=== PATIENT | female | born 1955 | race Caucasian/White ===

== ENCOUNTER 2022-04-08 12:50 | Outpatient (CLI) | payer OTHER, SELFPAY ==
--- NOTE | 2022-04-08 13:00 | CRLHL7_ITS ---
For Patients: As a result of the Century Cures Act, medical imaging exams and procedure reports are released immediately into your electronic medical record. You may view this report before your referring provider. If you have questions, please contact your health care provider. DXA BONE MINERAL DENSITY STUDY Current height (in): 65.0. Weight (lb): 180.0. Menopause age: 61. Ethnicity: White. 1. Have you had a previous hip or vertebral fracture? No. 2. Have you had any fractures during your adult life which did not result from significant trauma (e.g., auto accident)? No. 3. Did either of your parents have a hip fracture? No. 4. Do you smoke? No. 5. Have you ever taken Glucocorticoids? No. 6. Do you have rheumatoid arthritis? No. 7. Do you have secondary osteoporosis? No. 8. Do you drink 3 or more alcoholic drinks per day? No. 9. Are you being treated for osteoporosis? No. 10. Have you ever taken any of the following medications: Actonel, Evista, Fosamax, Miacalcin, Reclast, Boniva, Forteo, HRT (i.e. estrogen/hormone therapy), Protelos, Prolia, Vitamin D, Calcium, other ??? please specify. ANSWER: Yes, calcium, vitamin D. 11. Do you have any of the following medical conditions: Anorexia or bulimia, asthma or emphysema, end stage renal disease, hyperparathyroidism, any seizure disorders, cancer, inflammatory bowel diseases, hysterectomy, other ??? please specify. ANSWER: Yes, cancer. 12. What was your maximum height (inches)? 65. 13. Do you perform weight bearing exercise regularly? Yes. 14. Do you regularly consume dairy products? Yes. 15. Do you drink caffeinated beverages? Yes. 16. At what age did your period start? 17. 17. Are you premenopausal? No. 18. How many full term pregnancies have you had? 3. 19. Have you ever missed your period for more than 6 months in a row (not including or menopause)? No. TECHNIQUE: Bone mineral density study was performed using the [employer]. FINDINGS: The results of the study expressed as bone mineral density (BMD) are as follows: Lumbar spine L1 to L4: BMD: 0.977 g/cm2. T-score: -0.6. Z-score: 1.1. Neck Left: BMD: 0.728 g/cm2. T-score: -1.1. Z-score: 0.4. Right: BMD: 0.718 g/cm2. T-score: -1.2. Z-score: 0.3. Total Left: BMD: 0.835 g/cm2. T-score: -0.9. Z-score: 0.3. Right: BMD: 0.844 g/cm2. T-score: -0.8. Z-score: 0.4. IMPRESSION: Osteopenia. *Comparison exams done prior to 02/2020 were performed on different unit, [employer]. COMPARISON: Compared with scan of 2019, the bone mineral density has decreased by 1.9 percent at the spine and increased by 1.0 percent at the hips. FRAX 10-year Fracture Risk Major Osteoporotic Fracture: 8.0 percent Hip Fracture: 0.7 percent Reported Risk Factors: [place] () Neck BMD=0.718, BMI=30.0 Nick Esposito M.D. Diagnostic Radiologist [email or web address] JARAD/renetta / be/Dictated by: Nick Esposito MD @ 04/08/2022 3:49:00 PM (Electronically Signed)
== END 2022-04-08 12:51 | disposition home or self-care (01) ==
PROVIDERS: Visit Provider Nurse Practitioner Family
DX: C50.919 Malignant neoplasm of unspecified site of unspecified female breast (principal); Z79.811 Long term (current) use of aromatase inhibitors
CPT/HCPCS: 77080

== ENCOUNTER 2022-05-28 08:58 | Outpatient (CLI) | payer OTHER, SELFPAY ==
[2022-05-28 13:46] LABS: Albumin* 4.4 g/dL (3.3-5.0); Chloride* 104 mmol/L (96-114)
[2022-05-28 13:47] LABS: Potassium* 4.4 mmol/L (3.6-5.1); Sodium* 139 mmol/L (135-149)
[2022-05-28 13:49] LABS: Alkaline Phosphatase* 118 U/L (40-150); Aspartate Amino Transferase* 34 U/L (12-35); Bilirubin Total* 0.4 mg/dL (0.1-1.5); Blood Urea Nitrogen* 16 mg/dL (7-30); Carbon Dioxide* 25 mmol/L (20-32); Cholesterol* 160 mg/dL (90-199); Glucose* 106 mg/dL (60-115); Triglycerides* 192 mg/dL (40-149)
[2022-05-28 13:50] LABS: Alanine Aminotransferase* 22 U/L (4-35); Calcium* 10.3 mg/dL (8.4-10.6); HDL Cholesterol* 64 mg/dL (>=50); LDL Cholesterol Calculated 58 mg/dL (<100)
[2022-05-28 14:00] LABS: Microalbumin Urine 10 mg/dL
[2022-05-28 14:09] LABS: Estimated Glomerular Filt Rate 63 ml/min
[2022-05-28 14:13] LABS: Creatinine Urine 184.9 mg/dL; Microalbumin Creatinine Ratio 50 mg/g (0-30)
== END 2022-05-28 08:59 | disposition home or self-care (01) ==
PROVIDERS: PCP Family Medicine; Visit Provider Family Medicine
DX: Z00.00 Encounter for general adult medical examination without abnormal findings (principal); E03.9 Hypothyroidism, unspecified; I10 Essential (primary) hypertension; D50.9 Iron deficiency anemia, unspecified; E11.9 Type 2 diabetes mellitus without complications
CPT/HCPCS: 80053; 80061; 82043; 82570; 84443

== ENCOUNTER 2022-06-04 10:44 | Outpatient (RCR) | payer OTHER, SELFPAY ==
--- NOTE | 2022-06-05 13:14 | URNOTE ---
Request received for authorazation for Althea ([id number]). Prior authorization is not required per [facility] record#[id number].
--- NOTE | 2022-06-11 12:59 | ONC.NURNOTE ---
Addendum entered by Chana Beltrán RN 07/24/22 11:03: Pt called back saying she is working on getting her blood pressure under control, and then will get dental clearance and call us to schedule. Addendum entered by Erica Cheng RN 07/24/22 09:29: LMOM to call our office for scheduling - will need to get copy of dental clearance first. Original Note: Patient was called to let her know that insurance will cover her zometa, but that she will need dental clearance. Asked that patient call office and give dental office information so that this can be completed.
== END 2022-12-01 23:59 | disposition home or self-care (01) ==
LOC: CCIC 10:44
PROVIDERS: PCP Family Medicine; Referring Provider Family Medicine; Visit Provider Nurse Practitioner Family
DX: C50.919 Malignant neoplasm of unspecified site of unspecified female breast (principal); Z17.0 Estrogen receptor positive status [ER+]; Z79.811 Long term (current) use of aromatase inhibitors; M85.80 Other specified disorders of bone density and structure, unspecified site; I89.0 Lymphedema, not elsewhere classified
CPT/HCPCS: 99212; 99214

== ENCOUNTER 2022-08-17 08:54 | Outpatient (CLI) | payer OTHER, SELFPAY ==
--- NOTE | 2022-08-17 09:15 | CRLHL7_ITS ---
For Patients: As a result of the Cures Act, medical imaging exams and procedure reports are released immediately into your electronic medical record. You may view this report before your referring provider. If you have questions, please contact your health care provider. BILATERAL SCREENING MAMMOGRAM WITH COMPUTER-AIDED DETECTION AND TOMOSYNTHESIS TECHNIQUE: CC and MLO views were obtained. These mammographic images have been obtained using full-field digital technique. These mammographic images were interpreted with the benefit of computer-aided detection. Breast tomosynthesis was used in this interpretation. COMPARISON FILM: 06/27/21, 05/21/20, 04/27/19 diagnostic. FINDINGS: There are scattered areas of fibroglandular density. IMPRESSION: There is no radiographic evidence for malignancy. ASSESSMENT: BI-RADS Category 2: Benign RECOMMENDATION: Routine screening mammogram in 1 year. A lay language report of this examination will be provided to the patient. NICK ACUNA M.D. Diagnostic Radiologist [email or web address] JARAD/michael Transcribed: 08/17/2022, 1:[address]/Dictated by: Nick Acuna MD @ 08/17/2022 10:34:00 AM (Electronically Signed)
== END 2022-08-17 08:55 | disposition home or self-care (01) ==
PROVIDERS: PCP Family Medicine; Visit Provider Family Medicine
DX: Z12.31 Encounter for screening mammogram for malignant neoplasm of breast (principal)
CPT/HCPCS: 77063; 77067

== ENCOUNTER 2022-12-03 10:18 | Outpatient (RCR) | payer OTHER, SELFPAY ==
[2022-12-03 11:01] LABS: Chloride* 108 mmol/L (96-114)
[2022-12-03 11:02] LABS: Albumin* 4.5 g/dL (3.3-5.0); Potassium* 4.1 mmol/L (3.6-5.1); Sodium* 141 mmol/L (135-149)
[2022-12-03 11:04] LABS: Creatinine* 0.9 mg/dL (0.5-1.5); Estimated Glomerular Filt Rate 71 ml/min
[2022-12-03 11:05] LABS: Alanine Aminotransferase* 29 U/L (4-35); Alkaline Phosphatase* 97 U/L (40-150); Aspartate Amino Transferase* 28 U/L (12-35); Bilirubin Total* 0.4 mg/dL (0.1-1.5); Blood Urea Nitrogen* 12 mg/dL (7-30); Carbon Dioxide* 26 mmol/L (20-32); Glucose* 110 mg/dL (60-115); Total Protein* 7.6 g/dL (6.0-8.3)
[2022-12-03 11:06] LABS: Calcium* 9.5 mg/dL (8.4-10.6)
[2022-12-03] MEDS: ZOLEDRONIC ACID 4 MG in 0.9 % SODIUM CHLORIDE 100 ml 100 ML 420 MG IVPB (12:27)
== END 2023-06-01 23:59 | disposition home or self-care (01) ==
LOC: CCIC 10:18
PROVIDERS: PCP Family Medicine; Referring Provider Family Medicine; Visit Provider Nurse Practitioner Family
DX: C50.919 Malignant neoplasm of unspecified site of unspecified female breast (principal); Z17.0 Estrogen receptor positive status [ER+]; Z79.811 Long term (current) use of aromatase inhibitors; M85.80 Other specified disorders of bone density and structure, unspecified site; I89.0 Lymphedema, not elsewhere classified
CPT/HCPCS: 36415; 80053; 80061; 84443; 96374; 99212; 99214; J3489

== ENCOUNTER 2022-12-28 11:19 | Outpatient (CLI) | payer OTHER, SELFPAY | END 2022-12-28 11:20 | disposition home or self-care (01) | LOC: FRMREF 11:19 | PROVIDERS: PCP Family Medicine; Visit Provider Family Medicine | DX: L02.412 Cutaneous abscess of left axilla (principal) | CPT/HCPCS: 87070; 87205 ==

== ENCOUNTER 2023-01-05 09:57 | Day surgery (SDC) | payer OTHER, SELFPAY ==
[2023-01-05] VITALS (10 sets, daily range): BP systolic 112–143; BP diastolic 58–78; PULSE 63–72; RESP 16–20; TEMP 36.3–36.8; O2SAT 96–100; BMI 32.3
[2023-01-05] MEDS: LACTATED RINGERS 1000 ML 1,000 ML 100 ML IV (10:30)
--- NOTE | 2023-01-05 11:41 | W.ANESCHARGE ---
Anesthesia Charges Start Date/Time Anesthesia Start Date: 01/05/23 Anesthesia Start Time: 11:57 Stop Date/Time Anesthesia Stop Date: 01/05/23 Anesthesia Stop Time: 13:55
[2023-01-05] MEDS: CEFAZOLIN 2 GM INJ IVP (12:07)
--- NOTE | 2023-01-05 12:33 | SUR.OPER ---
PATIENT QUESTIONS ANSWERED SATISFACTORILY PREOPERATIVELY. PATIENT BROUGHT TO OR #2 PER CART. Patient positioned supine on OR #2 bed. ? Perioperative team supported arms bilaterally on arm boards. Final approval of positioning by surgeon.
[2023-01-05] MEDS: BUPIVACAINE 0.5% 30 ML 10 ML INJECTION (12:55)
--- NOTE | 2023-01-05 13:51 | PM.GSPRC ---
Operative Note Date of procedure: 01/05/23 Pre-op diagnosis: 1. Painful draining calcified mass in the left axilla at the site of previous lumpectomy. Post-op diagnosis: Same Type of Procedure: 1. Excision of left axillary mass with complex incisional closure. Indications: 67-year-old female with previous history of left breast lumpectomy and axillary node dissection in 2014 s/p postoperative radiation, chemotherapy, and antiestrogen therapy was seen in clinic with a draining opening in the center of her left lumpectomy/left axillary incision. The drainage was noted about a week prior to her presentation. She also was noted to have redness and was treated with antibiotics. However antibiotics only made a small difference in her drainage. Patient's mammogram from several months ago was reviewed and a left breast dystrophic calcification was seen near the axilla. This was present since 2019. On clinical exam in the left axilla at the site of previous lumpectomy/axillary node dissection incision there was central erythema with firmness to palpation. In the center of this calcified tissue there was a 5 mm opening with purulent drainage coming out from the skin opening. Given patient's physical exam and her previous history of breast cancer, excisional biopsy of this left axillary mass for diagnostic purposes was recommended. The procedure was discussed in detail. The risks associated with the procedure including infection, bleeding, possible need for additional procedures were all discussed with the patient, and she agreed to proceed. Procedure Description: After discussing the risks and benefits of the procedure, the patient signed informed consent.? The operative site was marked and the patient was brought to the operating room and placed on the operating table in supine position.? Care was taken to pad the patient's pressure points.?? The patient was then intubated by anesthesia.?? The operative site was then prepped and draped in the usual sterile fashion.? A time-out was then performed. An elliptical slightly oblique skin incision was made with a scalpel around the calcified mass excising the draining skin opening. The dissection was carried down to the breast tissue and subcutaneous fat with cautery. The dissected tissues were friable and bleeding was controlled with cautery. The mass was firmly attached to the pectoralis muscle and scar tissue in the left axilla from patient's previous axillary dissection. The mass was shaved off of the underlying tissues to avoid injury to the underlying structures. I would call this a hostile axilla due to the difficulty of dissecting the tissues from underlying muscle and axillary scar. Once the mass was removed, it was inked for orientation and sent to pathology in formalin. Hemostasis was achieved with cautery. Local anesthetic was injected in the surgical field. The breast tissue was mobilized of the pectoralis fascia medially and a lateral skin flap was developed to achieve cosmetic closure. This was done with cautery. A 15 round Fran drain was placed through a separate stab incision just inferior to the excisional biopsy cavity. The drain was secured in place with a nylon suture. The incision was then closed in layers with interrupted 2-0 and 3-0 Vicryl sutures. The skin was closed with a running 4-0 Monocryl stitch. The length of the incision was 15.5 cm. Steri-Strips and sterile gauze was placed over the incision. The chest was then wrapped in an Sudeep wrap. ? ? The patient was then woken and transported to the recovery area in stable condition. ? The patient tolerated the procedure well. Findings: Firm calcified mass attached to pectoralis muscle and underlying axillary scar. Anesthesia: GETA Surgeon: Cheyanne Velasquez MD Estimated blood loss (mL): 10 Additional Specimen Information: 1. Left axillary mass Condition: stable Disposition: PACU
--- NOTE | 2023-01-05 13:58 | W.ANESCHARGE ---
Anesthesia Charges Start Date/Time Anesthesia Start Date: 01/05/23 Anesthesia Start Time: 11:57 Stop Date/Time Anesthesia Stop Date: 01/05/23 Anesthesia Stop Time: 13:55
--- NOTE | 2023-01-05 15:25 | SUR.PHASEII ---
POST-OP TEACHING DONE. DRESSING CHANGES DAILY AND MEASURING OUTPUT OF THE TIM DRAIN DAILY. PATIENT STATED UNDERSTANDING OF WOUND CARE. DENIES FURTHER QUESTIONS.
== END 2023-01-05 15:29 | disposition home or self-care (01) ==
PROVIDERS: PCP Family Medicine; Visit Provider Surgery
PROC: (CPT 11406; principal; 2023-01-05 12:15)
DX: L90.5 Scar conditions and fibrosis of skin (principal); N64.89 Other specified disorders of breast; Z85.3 Personal history of malignant neoplasm of breast
CPT/HCPCS: 11406; 13101; 13102 ×2; 01610; 88305; J0330; J0690; J1170; J2250; J2704; J2710; J3010; J3490; J7120

== ENCOUNTER 2023-05-31 08:06 | Outpatient (CLI) | payer OTHER, SELFPAY | END 2023-05-31 08:07 | disposition home or self-care (01) | LOC: NFLDREF 06-02 06:25 | PROVIDERS: PCP Family Medicine; Referring Provider Family Medicine; Visit Provider Family Medicine | DX: E03.9 Hypothyroidism, unspecified (principal); K76.0 Fatty (change of) liver, not elsewhere classified; I10 Essential (primary) hypertension; E78.2 Mixed hyperlipidemia; M85.80 Other specified disorders of bone density and structure, unspecified site | CPT/HCPCS: 80053; 80061; 82043; 82306; 82570; 84443 ==

== ENCOUNTER 2023-06-16 12:58 | Outpatient (RCR) | payer OTHER, SELFPAY ==
--- NOTE | 2023-06-11 15:58 | URNOTE ---
Request received for authorization for [employer] ([id number]). Prior authorization is not required [facility]#[id number].
[2023-06-16 13:44] LABS: Calcium* 9.4 mg/dL (8.4-10.6); Creatinine* 1.1 mg/dL (0.5-1.5); Estimated Glomerular Filt Rate 56 ml/min
[2023-06-16] MEDS: ZOLEDRONIC ACID 4 MG in 0.9 % SODIUM CHLORIDE 100 ml 100 ML 420 MG IVPB (15:26)
== END 2023-12-13 23:59 | disposition home or self-care (01) ==
LOC: CCIC 12:58
PROVIDERS: PCP Family Medicine; Referring Provider Family Medicine; Visit Provider Internal Medicine Hematology & Oncology
DX: C50.912 Malignant neoplasm of unspecified site of left female breast (principal); Z17.0 Estrogen receptor positive status [ER+]; M85.80 Other specified disorders of bone density and structure, unspecified site; I89.0 Lymphedema, not elsewhere classified
CPT/HCPCS: 36415; 82310; 82565; 96374; 99212; 99214; J3489

== ENCOUNTER 2023-12-20 07:58 | Outpatient (CLI) | payer OTHER, SELFPAY | END 2023-12-20 07:59 | disposition home or self-care (01) | PROVIDERS: PCP Family Medicine; Visit Provider Family Medicine | DX: R73.03 Prediabetes (principal); I10 Essential (primary) hypertension; E03.9 Hypothyroidism, unspecified; E78.5 Hyperlipidemia, unspecified; Z11.59 Encounter for screening for other viral diseases | CPT/HCPCS: 80053; 80061; 82043; 82570; 84439; 84443; 86803 ==

== ENCOUNTER 2024-01-20 15:02 | Outpatient (CLI) | payer OTHER, SELFPAY ==
--- NOTE | 2024-01-20 15:20 | MM_ITS ---
Patient: RONALDO SHUKLA Facility:?[facility] Patient ID:?[id number] Site Patient ID:?[id number] Site :?[id number] Study:?XRay-Breast Bilateral 3D W/CAD-01/20/2024 4:11:29 PM Ordering Physician:Jenelle Final Report: BILATERAL SCREENING MAMMOGRAM WITH COMPUTER-AIDED DETECTION AND TOMOSYNTHESIS TECHNIQUE: CC and MLO views were obtained. These mammographic images have been obtained using full-field digital technique. These mammographic images were interpreted with the benefit of computer-aided detection. Breast Tomosynthesis was used in this interpretation. COMPARISON FILM: 08/17/22, 06/27/21, 05/21/20. FINDINGS: The breasts are almost entirely fatty. IMPRESSION: There is no radiographic evidence for malignancy. ASSESSMENT: BI-RADS Category 2: Benign RECOMMENDATION: Routine screening mammogram in 1 year. A lay language report of this examination will be provided to the patient. Nick Esposito M.D. Diagnostic Radiologist [email or web address] DSM/sp R& Transcribed: 6:56 p.m. SP/Dictated by: Nick Esposito MD @ 01/24/2024 9:07:00 AM Signed by:?Nick Esposito MD @01/24/2024 8:47:35 PM (Electronic Signature)
== END 2024-01-20 15:03 | disposition home or self-care (01) ==
LOC: MAMMO 15:04
PROVIDERS: PCP Family Medicine; Visit Provider Family Medicine
DX: Z12.31 Encounter for screening mammogram for malignant neoplasm of breast (principal)
CPT/HCPCS: 77063; 77067

== ENCOUNTER 2024-02-07 09:10 | Outpatient (RCR) | payer OTHER, SELFPAY ==
[2023-12-27] MEDS: 0.9 % SODIUM CHLORIDE 250 ml IV (14:30)
[2023-12-27] MEDS: SODIUM CHLORIDE 0.9 % (FLUSH) 10 ML SYRINGE IVF (14:30)
[2023-12-27] MEDS: ZOLEDRONIC ACID 4 MG in 0.9 % SODIUM CHLORIDE 100 ml 100 ML 420 MG IVPB (14:35)
--- NOTE | 2024-01-03 12:52 | ONC.NURNOTE ---
Spoke to pt regarding transition her osteopenia management and bone density test to primary care, pt requesting nursing contact pt's primary care provider- Socorro Westfall at [facility]. [employer] called and left message with [facility] as pt has an appt tomorrow with them. Lidia aware rash has resolved and would like pt to follow up with oncology in 2 months. Pt verbalized understanding of plan of care.
== END 2024-06-24 23:59 | disposition home or self-care (01) ==
LOC: CCIC 09:10
PROVIDERS: PCP Family Medicine; Visit Provider Physician Assistant
DX: C50.912 Malignant neoplasm of unspecified site of left female breast (principal); Z17.0 Estrogen receptor positive status [ER+]; M85.80 Other specified disorders of bone density and structure, unspecified site; I89.0 Lymphedema, not elsewhere classified; L53.9 Erythematous condition, unspecified; L29.9 Pruritus, unspecified
CPT/HCPCS: 96374; 99214; 99215; G0463; J3489; J7050

== ENCOUNTER 2024-06-29 08:50 | Outpatient (CLI) | payer OTHER, SELFPAY | END 2024-06-29 08:51 | disposition home or self-care (01) | LOC: NFLDREF 06-30 11:02 | PROVIDERS: PCP Family Medicine; Referring Provider Family Medicine; Visit Provider Family Medicine | DX: R73.03 Prediabetes (principal); E03.9 Hypothyroidism, unspecified; I10 Essential (primary) hypertension; F31.70 Bipolar disorder, currently in remission, most recent episode unspecified; B00.1 Herpesviral vesicular dermatitis; I89.0 Lymphedema, not elsewhere classified; R21 Rash and other nonspecific skin eruption | CPT/HCPCS: 84439; 84443 ==

== ENCOUNTER 2024-07-31 07:25 | Outpatient (CLI) | payer OTHER, SELFPAY | END 2024-07-31 07:26 | disposition home or self-care (01) | LOC: NFLDREF 08-01 11:50 | PROVIDERS: PCP Family Medicine; Referring Provider Family Medicine; Visit Provider Family Medicine | DX: E03.9 Hypothyroidism, unspecified (principal) | CPT/HCPCS: 84439; 84443 ==

== ENCOUNTER 2024-12-22 09:09 | Outpatient (CLI) | payer OTHER, SELFPAY | END 2024-12-22 09:10 | disposition home or self-care (01) | PROVIDERS: PCP Family Medicine; Visit Provider Family Medicine | DX: I10 Essential (primary) hypertension (principal); E78.5 Hyperlipidemia, unspecified; E03.9 Hypothyroidism, unspecified; R73.03 Prediabetes; K76.0 Fatty (change of) liver, not elsewhere classified; E88.810 Metabolic syndrome | CPT/HCPCS: 80053; 80061; 82043; 82570; 84439; 84443 ==

== ENCOUNTER 2025-01-24 13:39 | Outpatient (CLI) | payer OTHER, SELFPAY ==
[2025-01-24] MEDS: PERFLUTREN LIPID MICROSPHERES 2 ML VIAL IVP (14:26)
--- NOTE | 2025-01-24 15:00 | CRLHL7_ITS ---
For Patients: As a result of the Century Cures Act, medical imaging exams and procedure reports are released immediately into your electronic medical record. You may view this report before your referring provider. If you have questions, please contact your health care provider. DXA BONE MINERAL DENSITY STUDY Reason for exam: Specified disorders of bone density. Current height (in): 64. Weight (lb): 200. Menopause age: 61. Ethnicity: White. 1. Have you had a previous hip or vertebral fracture? No. 2. Have you had any fractures during your adult life which did not result from significant trauma (e.g., auto accident)? No. 3. Did either of your parents have a hip fracture? No. 4. Do you smoke? No. 5. Have you ever taken Glucocorticoids? No. 6. Do you have rheumatoid arthritis? No. 7. Do you have secondary osteoporosis? No. 8. Do you drink 3 or more alcoholic drinks per day? No. 9. Are you being treated for osteoporosis? No. 10. Have you ever taken any of the following medications: Actonel, Evista, Fosamax, Miacalcin, Reclast, Boniva, Forteo, HRT (i.e. estrogen/hormone therapy), Protelos, Prolia, Vitamin D, Calcium, other ??? please specify. ANSWER: Yes, Vitamin D and Calcium. 11. Do you have any of the following medical conditions: Anorexia or bulimia, asthma or emphysema, end stage renal disease, hyperparathyroidism, any seizure disorders, cancer, inflammatory bowel diseases, hysterectomy, other ??? please specify. ANSWER: Yes, cancer (breast). 12. What was your maximum height (inches)? 65. 13. Do you perform weight bearing exercise regularly? No. 14. Do you regularly consume dairy products? Yes. 15. Do you drink caffeinated beverages? Yes. 16. At what age did your period start? 17. 17. Are you premenopausal? No. 18. How many full term pregnancies have you had? 3. 19. Have you ever missed your period for more than 6 months in a row (not including or menopause)? No. TECHNIQUE: Bone mineral density study was performed using the [employer]. FINDINGS: The results of the study expressed as bone mineral density (BMD) are as follows: Lumbar spine L1 to L4: BMD: 1.0.57 g/cm2. T-score: 0.1. Z-score: 2.0. Neck Left: BMD: 0.722 g/cm2. T-score: -1.1. Z-score: 0.5. Right: BMD: 0.726 g/cm2. T-score: -1.1 . Z-score: 0.5. Total Left: BMD: 0.862 g/cm2. T-score: -0.7 . Z-score: 0.7. Right: BMD: 0.884 g/cm2. T-score: -0.5. Z-score: 0.9. IMPRESSION: Osteopenia. *Comparison exams done prior to 02/2020 were performed on different unit, [employer]. COMPARISON: Compared with scan of 04/08/2022, the bone mineral density has increased by 8.3 percent at the spine and increased by 3.9 percent at the hip. Compared with scan of 04/04/2020, the bone mineral density has decreased by 1.9 percent at the spine and increased by 1.0 percent at the hip. FRAX 10-year Fracture Risk Major Osteoporotic Fracture: 8.1 percent Hip Fracture: 0.7 percent Reported Risk Factors: [place] () Neck BMD=0.722, BMI=34.3 Nick Esposito M.D. Diagnostic Radiologist [email or web address] SP/Dictated by: Nick Esposito MD @ 01/24/2025 3:51:00 PM (Electronically Signed)
== END 2025-01-24 13:40 | disposition home or self-care (01) ==
LOC: RAD 13:40
PROVIDERS: PCP Family Medicine; Visit Provider Family Medicine
DX: R01.1 Cardiac murmur, unspecified (principal); I35.1 Nonrheumatic aortic (valve) insufficiency; M85.80 Other specified disorders of bone density and structure, unspecified site; M85.89 Other specified disorders of bone density and structure, multiple sites
CPT/HCPCS: 77080; 93306; Q9957

== ENCOUNTER 2025-03-26 13:07 | Outpatient (CLI) | payer OTHER, SELFPAY ==
--- NOTE | 2025-03-26 13:20 | CRLHL7_ITS ---
For Patients: As a result of the Century Cures Act, medical imaging exams and procedure reports are released immediately into your electronic medical record. You may view this report before your referring provider. If you have questions, please contact your health care provider. INDICATION: BILATERAL SCREENING MAMMOGRAM, ASYMPTOMATIC 69 Y/O FEMALE COMPARISON: 01/20/2024, 08/17/2022, 06/27/2021 TECHNIQUE: Digital mammogram in CC and MLO projections including computer-aided detection (CAD) and tomosynthesis. BREAST COMPOSITION: There are scattered areas of fibroglandular density. FINDINGS: No suspicious findings. There are postsurgical changes in the left breast. ASSESSMENT: BI-RADS 2 Benign RECOMMENDATION: Annual screening mammogram. A lay language report of this examination will be provided to the patient. Dictated by: Eliza Navas MD @ 03/29/2025 10:36:04 (Electronically Signed)
== END 2025-03-26 13:08 | disposition home or self-care (01) ==
LOC: MAMMO 13:07
PROVIDERS: PCP Family Medicine; Visit Provider Family Medicine
DX: Z12.31 Encounter for screening mammogram for malignant neoplasm of breast (principal)
CPT/HCPCS: 77063; 77067